=== PATIENT | female | born 1955 ===

== ENCOUNTER 2025-03-02 05:54 | Outpatient (RCR) | payer MEDICARE, SELFPAY | END 2025-03-02 23:59 | disposition home or self-care (01) | LOC: RPT 05:54 | PROVIDERS: ATTENDING PHYSICIAN Nurse Practitioner Family; FAMILY PHYSICIAN Internal Medicine | DX: N39.46 Mixed incontinence (principal); R10.2 Pelvic and perineal pain; M62.89 Other specified disorders of muscle | CPT/HCPCS: 97163; 97530 ==

== ENCOUNTER 2025-03-21 08:13 | Outpatient (RCR) | payer MEDICARE, SELFPAY | END 2025-03-21 23:59 | disposition home or self-care (01) | LOC: RPT 08:13 | PROVIDERS: ATTENDING PHYSICIAN Nurse Practitioner Family; FAMILY PHYSICIAN Internal Medicine | DX: N39.46 Mixed incontinence (principal); R39.15 Urgency of urination (principal); M62.89 Other specified disorders of muscle; Z73.6 Limitation of activities due to disability; N39.41 Urge incontinence; R10.2 Pelvic and perineal pain | CPT/HCPCS: 97110; 97530 ==

== ENCOUNTER 2025-05-01 14:54 | Outpatient (RCR) | payer MEDICARE, SELFPAY | END 2025-05-01 23:59 | disposition home or self-care (01) | LOC: RPT 14:54 | PROVIDERS: ATTENDING PHYSICIAN Nurse Practitioner Family; FAMILY PHYSICIAN Internal Medicine | DX: R39.15 Urgency of urination (principal); M62.89 Other specified disorders of muscle; N39.46 Mixed incontinence; Z73.6 Limitation of activities due to disability; N39.41 Urge incontinence; R10.2 Pelvic and perineal pain | CPT/HCPCS: 97110; 97112; 97530 ==

== ENCOUNTER 2025-06-05 10:39 | Outpatient (RCR) | payer MEDICARE, SELFPAY | END 2025-06-05 23:59 | disposition home or self-care (01) | LOC: RPT 10:39 | PROVIDERS: ATTENDING PHYSICIAN Nurse Practitioner Family; FAMILY PHYSICIAN Internal Medicine | DX: N39.46 Mixed incontinence (principal); M62.89 Other specified disorders of muscle; Z73.6 Limitation of activities due to disability; R10.2 Pelvic and perineal pain; R39.15 Urgency of urination; N39.41 Urge incontinence | CPT/HCPCS: 97014; 97110; 97530 ==